=== PATIENT | male | born 1980 | race Caucasian/White ===

== ENCOUNTER 2023-08-19 14:08 | Emergency (ER) | payer OTHER, SELFPAY ==
[2023-08-19] VITALS (50 sets, daily range): BP systolic 92–143; BP diastolic 56–113; PULSE 50–90; RESP 12–25; TEMP 36.2; O2SAT 91–100; BMI 36.9
--- NOTE | 2023-08-19 14:22 | ED.RN ---
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
[2023-08-19] MEDS: HYDROmorphone 1 MG/ML Syringe IV ×2 (14:45→17:39)
[2023-08-19] MEDS: Ondansetron ODT 4 MG Tablet PO (14:45)
--- NOTE | 2023-08-19 14:55 | RAD_ITS ---
STUDY: X-RAY - LEFT TIBIA AND FIBULA REASON FOR EXAM: Male, 43 years old. Logging injury with pain. TECHNIQUE: 2 view(s) of the tibia and fibula were obtained on 4 images. COMPARISON: None. FINDINGS: Segmental fractures of the tibia with slight anterior angulation and medial of the distal fracture site. Comminution at both fracture sites. Impacted fracture of the proximal fibula with with medial angulation of the distal fracture site and impaction at the proximal fracture site. Overlap of the fracture fragments at the distal fracture site. Diffuse soft tissue swelling. RAD/Tibia & Fibula 2 Views IMPRESSION: Fractures of the tibia and fibula with diffuse soft tissue swelling as described. Electronically Signed: Davi Alvarez MD at 15:14 EDT ,
[2023-08-19] MEDS: Propofol 200 MG/20 ML Vial IV BOLUS (15:49)
--- NOTE | 2023-08-19 16:13 | ED.RN ---
[id number] I spoke with he patient and regarding workmans compensation. I was informed by he patient and the they would not be completing the required documents because they are self-employed and do no believe it will be necessary,. physician Cabrera at bedside during the conversation
--- NOTE | 2023-08-19 16:42 | EDS_ITS ---
HPI History of Present Illness HPI Narrative: Patient presents with left leg injury that occurred today. Patient was cutting logs when one of the logs hit him in his abdomen and then hit him in his left leg. Patient denies any abdominal pain. Patient states his pain is over his left lower leg. Patient denies any head injury or loss of consciousness. Patient denies any paresthesias or weakness. Patient states his last tetanus was less than 5 years ago. Patient states his pain is worse with any movement. Patient denies any other injuries. Chief Complaint: Trauma Informant: patient Occured/Mechanism Mechanism/Context: Yes direct blow Onset/Context/Timing Onset: Today Context: Sudden Onset Timing: Continuous Quality of Pain: Sharp Location: Left lower leg Worsened by: Movement, palpation Relieved by: Rest Associated Symptoms Associated Symptoms: Negative for Parasthesia, Weakness or Loss of Funtion Narrative Tetanus Immunization: <5 years PFSH PFSH Medical History no medical history no medical history Home Medications NK 08/19/23 [History Last Taken Unknown] Allergy/AdvReac Type Severity Reaction Status Date / Time No Known Allergies Allergy Verified 08/19/23 15:39 Surgical History no surgical history no surgical history Social History Smoking Status: Never smoker ROS ROS ED Constitutional Constitutional ED: Denies chills or fever(s) Eyes Eyes: Denies blurry vision or change in vision ENT ENT ED: Denies rhinorrhea or sore throat Cardiovascular Cardiovascular: Denies chest pain or palpitations Respiratory/Chest Respiratory/Chest: Denies cough or dyspnea Gastrointestinal Gastrointestinal: Denies nausea or vomiting Genitourinary Genitourinary ED: Denies dysuria or hematuria Musculoskeletal Musculoskeletal: Denies back pain or neck pain Integumentary Denies abscess or rash Neurologic Neurologic: Denies headache(s) or weakness Allergic/Immunologic Allergic/Immunologic ED: Denies mouth swelling or urticaria EXAM Physical Exam Const Vital Signs: 08/19/23 14:10 08/19/23 15:09 08/19/23 15:10 Temperature 97.1 F L Temperature Source Temporal Pulse Rate 70 64 65 Pulse Rate [1 (Initial Baseline)] Pulse Rate [2] Pulse Rate [3] Respiratory Rate 22 H 16 12 Respiratory Rate [1 (Initial Baseline)] Respiratory Rate [2] Respiratory Rate [3] Blood Pressure 141/113 H 115/63 127/59 H Blood Pressure [1 (Initial Baseline)] Blood Pressure [2] Blood Pressure [3] Blood Pressure Mean 122 80 Pulse Ox 94 98 100 Oxygen Delivery Method Room Air Room Air Nasal Cannula Oxygen Delivery Method [1 (Initial Baseline)] Oxygen Delivery Method [2] Oxygen Delivery Method [3] Oxygen Flow Rate (L/min) 2 Oxygen Flow Rate (L/min) [1 (Initial Baseline)] Oxygen Flow Rate (L/min) [2] Oxygen Flow Rate (L/min) [3] 08/19/23 15:46 08/19/23 16:00 08/19/23 16:05 Temperature Temperature Source Pulse Rate Pulse Rate [1 (Initial Baseline)] 63 Pulse Rate [2] 73 Pulse Rate [3] 75 Respiratory Rate Respiratory Rate [1 (Initial Baseline)] 12 Respiratory Rate [2] 14 Respiratory Rate [3] 13 Blood Pressure Blood Pressure [1 (Initial Baseline)] 119/67 Blood Pressure [2] 112/62 Blood Pressure [3] 107/56 L Blood Pressure Mean Pulse Ox Oxygen Delivery Method Nasal Cannula Room Air Oxygen Delivery Method [1 (Initial Baseline)] Nasal Cannula Oxygen Delivery Method [2] Nasal Cannula Oxygen Delivery Method [3] Nasal Cannula Oxygen Flow Rate (L/min) 2 Oxygen Flow Rate (L/min) [1 (Initial Baseline)] 2 Oxygen Flow Rate (L/min) [2] 2 Oxygen Flow Rate (L/min) [3] 2 08/19/23 16:10 08/19/23 14:15 08/19/23 14:20 Temperature Temperature Source Pulse Rate 69 68 Pulse Rate [1 (Initial Baseline)] Pulse Rate [2] Pulse Rate [3] Respiratory Rate 13 21 H Respiratory Rate [1 (Initial Baseline)] Respiratory Rate [2] Respiratory Rate [3] Blood Pressure 101/64 Blood Pressure [1 (Initial Baseline)] Blood Pressure [2] Blood Pressure [3] Blood Pressure Mean 76 Pulse Ox 99 95 Oxygen Delivery Method Room Air Oxygen Delivery Method [1 (Initial Baseline)] Oxygen Delivery Method [2] Oxygen Delivery Method [3] Oxygen Flow Rate (L/min) Oxygen Flow Rate (L/min) [1 (Initial Baseline)] Oxygen Flow Rate (L/min) [2] Oxygen Flow Rate (L/min) [3] 08/19/23 14:30 08/19/23 14:40 08/19/23 14:45 Temperature Temperature Source Pulse Rate 56 L 67 64 Pulse Rate [1 (Initial Baseline)] Pulse Rate [2] Pulse Rate [3] Respiratory Rate 14 19 H 20 H Respiratory Rate [1 (Initial Baseline)] Respiratory Rate [2] Respiratory Rate [3] Blood Pressure 103/57 L 107/65 Blood Pressure [1 (Initial Baseline)] Blood Pressure [2] Blood Pressure [3] Blood Pressure Mean 65 78 Pulse Ox 98 99 94 Oxygen Delivery Method Oxygen Delivery Method [1 (Initial Baseline)] Oxygen Delivery Method [2] Oxygen Delivery Method [3] Oxygen Flow Rate (L/min) Oxygen Flow Rate (L/min) [1 (Initial Baseline)] Oxygen Flow Rate (L/min) [2] Oxygen Flow Rate (L/min) [3] 08/19/23 14:50 08/19/23 15:00 08/19/23 15:10 Temperature Temperature Source Pulse Rate 64 50 L 61 Pulse Rate [1 (Initial Baseline)] Pulse Rate [2] Pulse Rate [3] Respiratory Rate 23 H 13 13 Respiratory Rate [1 (Initial Baseline)] Respiratory Rate [2] Respiratory Rate [3] Blood Pressure 124/64 H Blood Pressure [1 (Initial Baseline)] Blood Pressure [2] Blood Pressure [3] Blood Pressure Mean 81 Pulse Ox 100 100 100 Oxygen Delivery Method Room Air Oxygen Delivery Method [1 (Initial Baseline)] Oxygen Delivery Method [2] Oxygen Delivery Method [3] Oxygen Flow Rate (L/min) Oxygen Flow Rate (L/min) [1 (Initial Baseline)] Oxygen Flow Rate (L/min) [2] Oxygen Flow Rate (L/min) [3] 08/19/23 15:15 08/19/23 15:20 08/19/23 15:30 Temperature Temperature Source Pulse Rate 64 66 65 Pulse Rate [1 (Initial Baseline)] Pulse Rate [2] Pulse Rate [3] Respiratory Rate 16 12 13 Respiratory Rate [1 (Initial Baseline)] Respiratory Rate [2] Respiratory Rate [3] Blood Pressure 115/63 127/59 H Blood Pressure [1 (Initial Baseline)] Blood Pressure [2] Blood Pressure [3] Blood Pressure Mean 77 81 Pulse Ox 100 100 100 Oxygen Delivery Method Oxygen Delivery Method [1 (Initial Baseline)] Oxygen Delivery Method [2] Oxygen Delivery Method [3] Oxygen Flow Rate (L/min) Oxygen Flow Rate (L/min) [1 (Initial Baseline)] Oxygen Flow Rate (L/min) [2] Oxygen Flow Rate (L/min) [3] 08/19/23 15:40 08/19/23 15:45 08/19/23 15:48 Temperature Temperature Source Pulse Rate 74 65 65 Pulse Rate [1 (Initial Baseline)] Pulse Rate [2] Pulse Rate [3] Respiratory Rate 17 20 H 14 Respiratory Rate [1 (Initial Baseline)] Respiratory Rate [2] Respiratory Rate [3] Blood Pressure 96/67 119/65 Blood Pressure [1 (Initial Baseline)] Blood Pressure [2] Blood Pressure [3] Blood Pressure Mean 73 79 Pulse Ox 100 100 100 Oxygen Delivery Method Oxygen Delivery Method [1 (Initial Baseline)] Oxygen Delivery Method [2] Oxygen Delivery Method [3] Oxygen Flow Rate (L/min) Oxygen Flow Rate (L/min) [1 (Initial Baseline)] Oxygen Flow Rate (L/min) [2] Oxygen Flow Rate (L/min) [3] 08/19/23 15:50 08/19/23 15:55 08/19/23 15:57 Temperature Temperature Source Pulse Rate 63 69 69 Pulse Rate [1 (Initial Baseline)] Pulse Rate [2] Pulse Rate [3] Respiratory Rate 12 14 19 H Respiratory Rate [1 (Initial Baseline)] Respiratory Rate [2] Respiratory Rate [3] Blood Pressure 124/65 H 112/62 107/56 L Blood Pressure [1 (Initial Baseline)] Blood Pressure [2] Blood Pressure [3] Blood Pressure Mean 81 79 71 Pulse Ox 100 100 98 Oxygen Delivery Method Oxygen Delivery Method [1 (Initial Baseline)] Oxygen Delivery Method [2] Oxygen Delivery Method [3] Oxygen Flow Rate (L/min) Oxygen Flow Rate (L/min) [1 (Initial Baseline)] Oxygen Flow Rate (L/min) [2] Oxygen Flow Rate (L/min) [3] 08/19/23 16:00 08/19/23 16:05 08/19/23 16:10 Temperature Temperature Source Pulse Rate 74 73 68 Pulse Rate [1 (Initial Baseline)] Pulse Rate [2] Pulse Rate [3] Respiratory Rate 16 18 14 Respiratory Rate [1 (Initial Baseline)] Respiratory Rate [2] Respiratory Rate [3] Blood Pressure 116/60 111/66 115/62 Blood Pressure [1 (Initial Baseline)] Blood Pressure [2] Blood Pressure [3] Blood Pressure Mean 77 80 76 Pulse Ox 98 95 100 Oxygen Delivery Method Oxygen Delivery Method [1 (Initial Baseline)] Oxygen Delivery Method [2] Oxygen Delivery Method [3] Oxygen Flow Rate (L/min) Oxygen Flow Rate (L/min) [1 (Initial Baseline)] Oxygen Flow Rate (L/min) [2] Oxygen Flow Rate (L/min) [3] 08/19/23 16:15 08/19/23 16:20 08/19/23 16:25 Temperature Temperature Source Pulse Rate 63 72 Pulse Rate [1 (Initial Baseline)] Pulse Rate [2] Pulse Rate [3] Respiratory Rate 16 14 Respiratory Rate [1 (Initial Baseline)] Respiratory Rate [2] Respiratory Rate [3] Blood Pressure 119/66 105/61 115/70 Blood Pressure [1 (Initial Baseline)] Blood Pressure [2] Blood Pressure [3] Blood Pressure Mean 82 74 80 Pulse Ox 98 97 Oxygen Delivery Method Oxygen Delivery Method [1 (Initial Baseline)] Oxygen Delivery Method [2] Oxygen Delivery Method [3] Oxygen Flow Rate (L/min) Oxygen Flow Rate (L/min) [1 (Initial Baseline)] Oxygen Flow Rate (L/min) [2] Oxygen Flow Rate (L/min) [3] 08/19/23 16:30 08/19/23 16:31 08/19/23 16:35 Temperature Temperature Source Pulse Rate 80 70 70 Pulse Rate [1 (Initial Baseline)] Pulse Rate [2] Pulse Rate [3] Respiratory Rate 20 H 15 21 H Respiratory Rate [1 (Initial Baseline)] Respiratory Rate [2] Respiratory Rate [3] Blood Pressure 115/76 110/56 L Blood Pressure [1 (Initial Baseline)] Blood Pressure [2] Blood Pressure [3] Blood Pressure Mean 84 74 Pulse Ox 98 98 Oxygen Delivery Method Oxygen Delivery Method [1 (Initial Baseline)] Oxygen Delivery Method [2] Oxygen Delivery Method [3] Oxygen Flow Rate (L/min) Oxygen Flow Rate (L/min) [1 (Initial Baseline)] Oxygen Flow Rate (L/min) [2] Oxygen Flow Rate (L/min) [3] 08/19/23 16:40 08/19/23 16:45 08/19/23 16:50 Temperature Temperature Source Pulse Rate 89 68 69 Pulse Rate [1 (Initial Baseline)] Pulse Rate [2] Pulse Rate [3] Respiratory Rate 22 H 16 17 Respiratory Rate [1 (Initial Baseline)] Respiratory Rate [2] Respiratory Rate [3] Blood Pressure 119/63 122/64 H 119/65 Blood Pressure [1 (Initial Baseline)] Blood Pressure [2] Blood Pressure [3] Blood Pressure Mean 80 80 81 Pulse Ox 99 99 95 Oxygen Delivery Method Oxygen Delivery Method [1 (Initial Baseline)] Oxygen Delivery Method [2] Oxygen Delivery Method [3] Oxygen Flow Rate (L/min) Oxygen Flow Rate (L/min) [1 (Initial Baseline)] Oxygen Flow Rate (L/min) [2] Oxygen Flow Rate (L/min) [3] 08/19/23 16:55 08/19/23 17:00 Temperature Temperature Source Pulse Rate 69 70 Pulse Rate [1 (Initial Baseline)] Pulse Rate [2] Pulse Rate [3] Respiratory Rate 15 16 Respiratory Rate [1 (Initial Baseline)] Respiratory Rate [2] Respiratory Rate [3] Blood Pressure 117/61 110/63 Blood Pressure [1 (Initial Baseline)] Blood Pressure [2] Blood Pressure [3] Blood Pressure Mean 76 78 Pulse Ox 96 98 Oxygen Delivery Method Oxygen Delivery Method [1 (Initial Baseline)] Oxygen Delivery Method [2] Oxygen Delivery Method [3] Oxygen Flow Rate (L/min) Oxygen Flow Rate (L/min) [1 (Initial Baseline)] Oxygen Flow Rate (L/min) [2] Oxygen Flow Rate (L/min) [3] Positive well nourished and well developed General Appearance ED: well developed and NAD HEENT Reports moist mucous membranes Neck full ROM and supple Chest Wall palpation of chest normal Resp normal respiratory effort and clear to auscultation bilaterally Cardio regular rate and regular rhythm GI non-tender and non-distended Palpation: soft Extremity Extremity Narrative: There is tenderness, edema, and obvious deformity of the left lower leg. There are no lacerations or abrasions noted. There is no bleeding noted. Range of motion was limited in all motions of the left lower leg and left ankle secondary to pain. Pedal pulses are equal bilaterally. Sensation was intact to light touch in all digits. Capillary refill was less than 2 seconds in all digits. Neuro oriented x3, CN's II-XII intact bilaterally, moves all extremities and no sensory deficits noted Sensorium / Orientation: alert Motor Exam: strength 5/5 throughout Psych mental status grossly normal Skin no wounds MDM MDM Radiography Diagnostic Testing: Clinical Impression(s) from Imaging Studies Tibia/Fibula X-Ray 08/19/23 14:55 IMPRESSION: Fractures of the tibia and fibula with diffuse soft tissue swelling as described. Electronically Signed: Davi Alvarez MD at 15:14 EDT , X-rays of the left tibia and fibula were obtained. There are segmental fractures of the proximal and distal tibial shaft. There is also fractures of the proximal and distal fibular shaft. There is moderate displacement. There is posterior angulation of the distal fragment of the tibia and fibula. Radiologist also interpreted the x-rays and agrees. Management Discussion w/another healthcare provider: Advertising Sales Agent Treatment and Re-Evaluation Narrative: Patient was given a dose of Dilaudid and Zofran initially. Patient was advised of the need for sedation for reduction of the fracture and application of a splint. Informed consent was obtained. Patient was placed on continuous ca rdiac and pulse external monitors. Patient was given a total of 150 mg of propofol. After adequate sedation, the left lower leg was reduced and a posterior splint using 5 inch Ortho-Glass and a sugar-tong splint using 3 inch Ortho-Glass was applied. Patient tolerated the procedure well. There were no hypoxic episodes. Neurovascular exam was intact before and after application of the splint. Case was discussed with Dr. Mcdonough from orthopedics. He reviewed the x-rays. He stated that this fracture would need to be transferred to a trauma center. Patient has seen an orthopedic surgeon at [facility] in the past. Patient stated he would prefer to go to [facility]. Case was discussed with Dr. Saab in the emergency department there. She accepted the patient to be transferred there. Patient understood and was agreeable with plan. All questions were answered. Procedures Lower Extremity Splints Lower Extremity Splint: Orthoglass, Stirrup and - (Posterior) Splint Fabrication: Fabricated Location: Left Procedural Sedation 1 (Initial Baseline): Consent Signed: Yes Any Problems With Anesthesia: No You/Your family experience fever (hyperthermia) w/anesthesia: No Sedation medication: Propofol Dose: 150 Route: IV Maliampati Score: Class II ASA Classification: E Discharge Plan Triage Chief Complaint: Trauma ED Provider: Merlin Rees Dx/Rx/DC Orders Clinical Impression: Traumatic leg injury, Closed fracture of left tibia and fibula Prescriptions: No Action NK Primary Care Provider: Care Physician,No Primary Referrals: Care Physician,No Primary [Primary Care Provider] - Disposition Disposition: Acute Care Hospital Discharge Location: [facility]
== END 2023-08-19 18:35 | disposition short-term general hospital (02) ==
PROVIDERS: Emergency Provider Emergency Medicine; Visit Provider Emergency Medicine
DX: S82.302A Unspecified fracture of lower end of left tibia, initial encounter for closed fracture (principal); S82.402A Unspecified fracture of shaft of left fibula, initial encounter for closed fracture; X58.XXXA Exposure to other specified factors, initial encounter
CPT/HCPCS: 29515; 73590; 96374; 96376; 99152; 99285; A4216